=== PATIENT | male | born 1980 ===

== ENCOUNTER 2017-06-01 06:31 | Inpatient (IN) | payer OTHER ==
[2017-05-31 14:00] VITALS: BMI 25.0
[2017-06-01] MEDS ORDERED: Lactated Ringer's 1,000 ML IV ONE ×2 (07:15→10:50)
[2017-06-01] MEDS ORDERED: APROTININ/FIBRINOGEN(TISSEEL) ONE (07:42)
[2017-06-01] MEDS ORDERED: Absorbable Gelatin Sponge Size 12-7 ONE (07:42)
[2017-06-01] MEDS ORDERED: Bupivacaine HCl 0.25% PF (30 ml) Inj ONE (07:42)
[2017-06-01] MEDS ORDERED: Bacitracin Ointment 30 GM TUBE ONE (07:42)
[2017-06-01] MEDS ORDERED: Thrombin Topical 5,000 IU Spray Kit ONE (07:42)
[2017-06-01] MEDS ORDERED: Lidocaine 1% Inj (20ml) ONE (07:43)
--- NOTE | 2017-06-01 07:50 | CP.PCM.CON ---
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 Alcohol: Occasional Drugs: Denies Home Situation {Lives}: With Family Domestic Violence: Negative - MUSCULOSKELETAL/RHEUMATOLOGICAL Hx Musculoskeletal Disorders: Yes Hx Back Pain: Yes - SURGICAL HISTORY Hx Surgeries: No Other/Comment: EPIDURAL x1 - ANESTHESIA Hx Anesthesia: No Hx Anesthesia Reactions: No Hx Malignant Hyperthermia: No Has any member of the family had a problem w/ anesthesia?: No Meds Allergies/Adverse Reactions: Allergies Allergy/AdvReac Type Severity Reaction Status Date / Time No Known Allergies Allergy Verified 05/31/17 13:50 Physical Exam - Constitutional Appears: Well, Non-toxic, No Acute Distress - Head Exam Head Exam: ATRAUMATIC, NORMAL INSPECTION, NORMOCEPHALIC - Eye Exam Eye Exam: EOMI, Normal appearance, PERRL Pupil Exam: NORMAL ACCOMODATION - ENT Exam ENT Exam: Mucous Membranes Moist - Neck Exam Additional comments: restricted ROM,hx cervical spondylosis - Respiratory Exam Respiratory Exam: Clear to Auscultation Bilateral, NORMAL BREATHING PATTERN - Cardiovascular Exam Cardiovascular Exam: REGULAR RHYTHM, +S1, +S2 - GI/Abdominal Exam GI & Abdominal Exam: Normal Bowel Sounds - Rectal Exam Rectal Exam: Deferred - Extremities Exam Extremities exam: Positive for: normal inspection, pedal pulses present - Back Exam Back exam: paraspinal tenderness, vertebral tenderness - Neurological Exam Neurological exam: Alert, Oriented x3 Additional comments: NAILS x 4 antigravity with BLE weakness,decreased sensation to left L4-5 dermatome ,+ Bilateral ,SLR at 40 degree's,no pelvic paresthesias or babinski,depressed DTR's - Psychiatric Exam Psychiatric exam: Normal Affect, Normal Mood - Skin Skin Exam: Dry, Intact Results - Labs Result Diagrams: 06/03/17 04:50 06/03/17 04:50 Labs: Laboratory Results - last 24 hr 06/01/17 06:55 BBK History Checked No verified bt Assessment & Plan - Assessment and Plan (Free Text) Assessment: 37 yo male with Lumbar Spondylosis L4-5,L5-S1 with BLE radiculapathy worse LLE and Instability Plan: pt to have a proposed L4-5,L5-S1 Decompressive Laminectomy with Instrumented Fusion with Dr. Gallego,risks and benefits explained to pt,expressed understanding and wishes to proceed.
[2017-06-01] MEDS ORDERED: SENSORCAINE 0.5% W/EPINEPHRINE 50ML MDV IJ ONE (08:13)
[2017-06-01] MEDS ORDERED: Propofol 10 mg/ml Inj (20 ML) ONE (08:48)
[2017-06-01] MEDS ORDERED: Midazolam 2 MG/2 ML VIAL ONE (08:48)
[2017-06-01] MEDS ORDERED: Rocuronium 10 mg/ml (5 ml) ONE ×2 (08:49→10:09)
[2017-06-01] MEDS ORDERED: Dexamethasone 4 mg/1 ml ONE (09:17)
[2017-06-01] MEDS ORDERED: HEMOSTATIC MATRIX 10 ML DIS.NEEDLE TOP ONE (09:30)
[2017-06-01] MEDS ORDERED: Neostigmine Methylsulfate 2 MG/2 ML ML IV ONE (10:44)
[2017-06-01] MEDS ORDERED: Lactated Ringer's 1,000 ML IV SCH (11:22)
[2017-06-01] MEDS ORDERED: DiphenhydrAMINE 50 mg/ml Inj IVP PRN (11:24)
[2017-06-01] MEDS: HYDROmorphone 0.5 mg/0.5 ml ISec IVP PRN ×2 (11:45→12:30)
[2017-06-01] MEDS: Dexamethasone 4 MG in Sodium Chloride 0.9% 50 ML IVPB SCH ×2 (16:51→21:14)
[2017-06-01] MEDS: Sodium Chloride 0.9% 1,000 ML IV SCH (16:52)
[2017-06-01] MEDS: ceFAZolin 1 GM in Sodium Chloride 0.9% 100 ML IVPB SCH (16:52)
[2017-06-02] MEDS: Sodium Chloride 0.9% 1,000 ML IV SCH (01:30)
[2017-06-02] MEDS: ceFAZolin 1 GM in Sodium Chloride 0.9% 100 ML IVPB SCH ×3 (01:43→16:07)
--- NOTE | 2017-06-02 03:12 | OP ---
PROCEDURE DATE: 06/01/2017 PREOPERATIVE DIAGNOSES: Lumbar spondylosis and herniated disk. POSTOPERATIVE DIAGNOSES: Lumbar spondylosis and herniated disk. PROCEDURE: L4-S1 lumbar laminectomy and decompression; L4-S1 pedicle screw fixation and instrumentation using Amendia system; L4-S1 posterolateral fusion. Fluoroscopy has been used. Microscope has been used. SURGEON: Dr. Gallego. COMPREHENSIVE ADVISOR: SETH Chacon. Ingrid Cardenas is a physician engineering inspection assistant. Ingrid Cardenas helped to perform the surgery. She has stayed throughout the case. DESCRIPTION OF PROCEDURE: The patient was brought to the operating room, administered with general endotracheal anesthesia, placed in a prone position on the Darrin table. Care was taken to protect all pressure points. Back of the lumbar area thoroughly prepped and draped in sterile manner after marking was consistent for lumbar laminectomy. After prepping and draping the area, skin had been incised. Bleeding skins had been controlled with bipolar digital strategist. After using the Bovie digital strategist, paraspinal muscles had been detached, attachments of spinous process, lamina of L4, L5, S1. Deep retractors had been applied. Identification of the levels had been done with the help of fluoroscopy. With the help of fluoroscopy initially by using a K-wire, the determination of landmarks of the pedicles have been noted and drill had been used in order to enter the pedicles. Polyaxial titanium screws of Amendia system have been placed under fluoroscopy guided control. Titanium rods have been placed, cup nuts have been used in order to secure them. After that under microscopic examination, the spinous process of L4, L5, S1 have been removed. By using a high speed drill, the lamina had been drilled to actual thickness. By using a fine Kerrison punch, lamina, medial part of the facets and ligamentum flavum had been removed. Decompressing this area. This place has been examined, there were hard disk noted. No extruded fragment noted. After that, lateral aspect of the facet joint, transverse process had been decorticated. Demineralized bone placed in the area achieving a posterolateral fusion. Hemostasis was best achieved. Darrin drain was placed on the wound and brought out through a separate stab neck skin incision. Muscles and fascia were closed with 1 Vicryl, subcutaneous tissue with 3 Vicryl. Skin had been closed with intradermal 3 Vicryl stitches. The patient tolerated the procedure and after procedure, mobilized to recovery room in stable condition. Luis Gallego MD
[2017-06-02] MEDS: Dexamethasone 4 MG in Sodium Chloride 0.9% 50 ML IVPB SCH ×4 (04:21→22:14)
[2017-06-02 07:24] LABS: BASO # 0.1 K/uL (0.0-0.2); BASO % 0.3 % (0.0-2.0); EOS % 0.1 % (0.0-4.0); HEMATOCRIT 46.4 % (35.0-51.0); LYMPH # 1.8 K/uL (1.0-4.3); LYMPH % 10.2 % (20.0-40.0); MEAN CELL VOLUME 75.1 fl (80.0-94.0); MEAN CORPUSCULAR HEMOGLOBIN 25.4 pg (27.0-31.0); MEAN CORPUSCULAR HGB CONC 33.8 g/dL (33.0-37.0); MEAN PLATELET VOLUME 8.5 fl (7.2-11.7); MONO # 0.7 K/uL (0.0-0.8); MONO % 4.2 % (0.0-10.0); NEUT # 14.8 K/uL (1.8-7.0); NEUT % 85.2 % (50.0-75.0); RED CELL DISTRIBUTION WIDTH 14.3 % (11.5-14.5); WHITE BLOOD COUNT 17.4 K/uL (4.8-10.8)
[2017-06-02 07:51] LABS: BLOOD UREA NITROGEN 11 mg/dl (9-20); CALCIUM 9.6 mg/dL (8.4-10.2); CARBON DIOXIDE 24 mmol/L (22-30); CHLORIDE 97 mmol/L (98-107); GFR AFRICAN-AMERICAN > 60; GLUCOSE,RANDOM 147 mg/dL (75-110); POTASSIUM 4.1 MMOL/L (3.6-5.0); SODIUM 138 mmol/l (132-148)
--- NOTE | 2017-06-02 08:35 | RAD ---
PROCEDURE: Intraoperative Fluoroscopy. HISTORY: FINDINGS: Fluoroscopic assistance was provided. Approximately 77.8 seconds of fluoroscopy time utilized during this procedure. Radiation dose = 41.97 mGy. Please refer to the operative report for additional details.
--- NOTE | 2017-06-02 15:34 | CP.PCM.HP ---
<Sophia Dickerson - Last Filed: 06/02/17 15:31> History of Present Illness - History of Present Illness History of Present Illness: 37 yo presented with lower back pain x 1 year. 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 Pt is s/p Lumbar Laminectomy with Fusion L4-5 on POD #1 Present on Admission - Present on Admission Any Indicators Present on Admission: No History of DVT/PE: No History of Uncontrolled Diabetes: No Urinary Catheter: No Decubitus Ulcer Present: No Review of Systems - Review of Systems All systems: reviewed and no additional remarkable complaints except (as per HPI ) Past Patient History - Past Medical History & Family History Past Medical History?: Yes - Past Social History Smoking Status: Smoker Currrent Status Unknown - MUSCULOSKELETAL/RHEUMATOLOGICAL Hx Musculoskeletal Disorders: Yes Hx Back Pain: Yes - SURGICAL HISTORY Hx Surgeries: No Other/Comment: EPIDURAL x1 - ANESTHESIA Hx Anesthesia: No Hx Anesthesia Reactions: No Hx Malignant Hyperthermia: No Has any member of the family had a problem w/ anesthesia?: No Meds Allergies/Adverse Reactions: Allergies Allergy/AdvReac Type Severity Reaction Status Date / Time No Known Allergies Allergy Verified 05/31/17 13:50 Physical Exam - Constitutional Appears: No Acute Distress - ENT Exam ENT Exam: Mucous Membranes Moist - Respiratory Exam Respiratory Exam: Clear to Auscultation Bilateral, NORMAL BREATHING PATTERN - Cardiovascular Exam Cardiovascular Exam: REGULAR RHYTHM, +S1, +S2 - GI/Abdominal Exam GI & Abdominal Exam: Normal Bowel Sounds, Soft. absent: Distended, Firm, Guarding, Tenderness - Extremities Exam Extremities exam: Positive for: normal inspection. Negative for: calf tenderness, pedal edema - Neurological Exam Neurological exam: Alert, Oriented x3 - Skin Skin Exam: Dry, Intact, Normal Color Results - Vital Signs Recent Vital Signs: Last Vital Signs Temp 98.4 F 06/02/17 12:31 Pulse 68 06/02/17 12:31 Resp 18 06/02/17 12:31 BP 125/73 06/02/17 12:31 Pulse Ox 97 06/02/17 12:31 - Labs Result Diagrams: 06/02/17 07:00 06/02/17 07:00 Labs: Laboratory Results - last 24 hr 06/02/17 06/02/17 07:00 07:00 WBC 17.4 H RBC 6.18 H Hgb 15.7 Hct 46.4 MCV 75.1 L MCH 25.4 L MCHC 33.8 RDW 14.3 Plt Count 207 MPV 8.5 Neut % (Auto) 85.2 H Lymph % (Auto) 10.2 L [place] % (Auto) 4.2 Eos % (Auto) 0.1 Baso % (Auto) 0.3 Neut # 14.8 H Lymph # 1.8 [place] # 0.7 Eos # 0.0 Baso # 0.1 Sodium 138 Potassium 4.1 Chloride 97 L Carbon Dioxide 24 Anion Gap 21 H BUN 11 Creatinine 0.9 Est GFR ( Amer) > 60 Est GFR (Non-Af Amer) > 60 Random Glucose 147 H Calcium 9.6 Assessment & Plan (1) Status post lumbar laminectomy Status: Acute Comment: c/w pain control. c/w reg diet. c/w incentive spirometer. H/h: 15.7/ 46.4. PT eval and treatment. f/u Neuro surgery recommendations (2) DVT prophylaxis Status: Acute Comment: SCDs for now - Date & Time Date: 06/02/17 Time: 08:10 <Irving Hollis - Last Filed: 06/04/17 10:00> Results - Vital Signs Recent Vital Signs: Last Vital Signs Temp 98.1 F 06/04/17 07:52 Pulse 78 06/04/17 07:52 Resp 20 06/04/17 07:52 BP 128/75 06/04/17 07:52 Pulse Ox 100 06/04/17 07:52 - Labs Result Diagrams: 06/03/17 04:50 06/03/17 04:50 Assessment & Plan (1) Lumbar radiculopathy Status: Acute (2) Degenerative disc disease, lumbar Status: Acute - Assessment and Plan (Free Text) Plan: I was present during evaluation and discussed with DR Dickerson re plans of care and mgt Medically stable readmit to telemetry pain meds
--- NOTE | 2017-06-02 15:57 | CP.PCM.PN ---
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 and pt placed on PO pain meds Objective - Vital Signs/Intake and Output Vital Signs (last 24 hours): Temp Pulse Resp BP Pulse Ox 98.4 F 68 18 125/73 97 06/02/17 12:31 06/02/17 12:31 06/02/17 12:31 06/02/17 12:31 06/02/17 12:31 Intake and Output: 06/02/17 06/02/17 06:59 18:59 Intake Total 1440 Output Total 1110 Balance 330 - Medications Medications: Current Medications Cyclobenzaprine HCl (Flexeril) 10 mg PO TID PRN PRN Reason: Muscle spasm Diphenhydramine HCl (Benadryl) 25 mg IVP Q6 PRN PRN Reason: Itching / Pruritus Lactated Ringer's (Lactated Ringer's) 1,000 mls @ 100 mls/hr IV .Q10H [facility] Cefazolin Sodium 1 gm/ Sodium (Chloride) 100 mls @ 100 mls/hr IVPB Q8 [facility] Last Admin: 06/02/17 08:05 Dose: 100 mls/hr Dexamethasone 4 mg/ Sodium (Chloride) 51 mls @ 102 mls/hr IVPB Q6 [facility] Last Admin: 06/02/17 09:00 Dose: 102 mls/hr Ondansetron HCl (Zofran Inj) 4 mg IVP Q6 PRN PRN Reason: Nausea/Vomiting Oxycodone/Acetaminophen (Percocet 5/325 Mg Tab) 2 tab PO Q4 PRN PRN Reason: Pain, moderate (4-7) Stop: 06/05/17 14:48 - Labs Labs: 06/02/17 07:00 06/02/17 07:00 - Constitutional Appears: Well, Non-toxic, No Acute Distress - Head Exam Head Exam: ATRAUMATIC, NORMAL INSPECTION, NORMOCEPHALIC - Eye Exam Eye Exam: EOMI, Normal appearance, PERRL - ENT Exam ENT Exam: Mucous Membranes Moist - Neck Exam Neck Exam: Normal Inspection - Cardiovascular Exam Cardiovascular Exam: REGULAR RHYTHM, +S1, +S2 - GI/Abdominal Exam GI & Abdominal Exam: Soft - Extremities Exam Extremities Exam: Normal Inspection - Back Exam Additional comments: incision C/D/I,SHAW patent with serosanguinos drainage,abd binder patent - Neurological Exam Neurological Exam: Alert, Oriented x3 Additional comments: Nichols x 4 antigravity with good strength,sensation intact - Psychiatric Exam Psychiatric exam: Normal Affect, Normal Mood - Skin Skin Exam: Dry, Intact Assessment and Plan - Assessment and Plan (Free Text) Assessment: 37 yo male POD#1 L4-S1 Decompressive Laminectomy and Instrumented Fusion, neurologically stable Plan: cont to monitor,keep drain,pain control,d/w Dr. Gallego
[2017-06-02] MEDS: Oxycodone/Acetaminophen 5/325 mg Tab PO PRN (22:18)
[2017-06-03] MEDS: ceFAZolin 1 GM in Sodium Chloride 0.9% 100 ML IVPB SCH ×3 (01:31→17:01)
[2017-06-03] MEDS: Dexamethasone 4 MG in Sodium Chloride 0.9% 50 ML IVPB SCH ×4 (04:14→21:09)
[2017-06-03 05:56] LABS: HEMATOCRIT 42.3 % (35.0-51.0); MEAN CELL VOLUME 76.8 fl (80.0-94.0); MEAN CORPUSCULAR HGB CONC 32.5 g/dL (33.0-37.0); RED CELL DISTRIBUTION WIDTH 13.9 % (11.5-14.5); WHITE BLOOD COUNT 15.4 K/uL (4.8-10.8)
[2017-06-03 06:37] LABS: BLOOD UREA NITROGEN 14 mg/dl (9-20); CALCIUM 9.3 mg/dL (8.4-10.2); CARBON DIOXIDE 26 mmol/L (22-30); CHLORIDE 101 mmol/L (98-107); GFR AFRICAN-AMERICAN > 60; GLUCOSE,RANDOM 134 mg/dL (75-110); POTASSIUM 4.2 MMOL/L (3.6-5.0); SODIUM 139 mmol/l (132-148)
[2017-06-03] MEDS: POLYETHYLENE GLYCOL 3350 17 GM/Dose PACKET PO SCH (09:07)
[2017-06-03] MEDS: Oxycodone/Acetaminophen 5/325 mg Tab PO PRN ×2 (09:29→22:07)
--- NOTE | 2017-06-03 13:02 | CP.PCM.PN ---
<Padmini Alatorre - Last Filed: 06/03/17 13:03> Subjective - Date & Time of Evaluation Date of Evaluation: 06/03/17 Time of Evaluation: 07:30 - Subjective Subjective: Patient seen and examined with attending. Complaint of pain offered. Would like to go home. As per Dr. Gallego, not cleared for d/c given SHAW still draining significant amount. Plan d/w patient. Pain control. Stable for transfer to med/surg. Objective - Vital Signs/Intake and Output Vital Signs (last 24 hours): Temp Pulse Resp BP Pulse Ox 98 F 75 18 116/71 96 06/03/17 12:09 06/03/17 12:09 06/03/17 12:09 06/03/17 12:09 06/03/17 12:09 Intake and Output: 06/03/17 06/03/17 06:59 18:59 Intake Total 670 Output Total 555 Balance 115 - Medications Medications: Current Medications Cyclobenzaprine HCl (Flexeril) 10 mg PO TID PRN PRN Reason: Muscle spasm Diphenhydramine HCl (Benadryl) 25 mg IVP Q6 PRN PRN Reason: Itching / Pruritus Lactated Ringer's (Lactated Ringer's) 1,000 mls @ 100 mls/hr IV .Q10H [facility] Cefazolin Sodium 1 gm/ Sodium (Chloride) 100 mls @ 100 mls/hr IVPB Q8 [facility] Last Admin: 06/03/17 09:03 Dose: 100 mls/hr Dexamethasone 4 mg/ Sodium (Chloride) 51 mls @ 102 mls/hr IVPB Q6 [facility] Last Admin: 06/03/17 10:53 Dose: 102 mls/hr Ondansetron HCl (Zofran Inj) 4 mg IVP Q6 PRN PRN Reason: Nausea/Vomiting Oxycodone/Acetaminophen (Percocet 5/325 Mg Tab) 2 tab PO Q4 PRN PRN Reason: Pain, moderate (4-7) Stop: 06/05/17 14:48 Last Admin: 06/03/17 09:29 Dose: 2 tab Polyethylene Glycol (Miralax) 17 gm PO DAILY [facility] Last Admin: 06/03/17 09:07 Dose: 17 gm - Labs Labs: 06/03/17 04:50 06/03/17 04:50 - Constitutional Appears: Non-toxic, No Acute Distress - Eye Exam Eye Exam: EOMI, Normal appearance, PERRL - ENT Exam ENT Exam: Mucous Membranes Moist - Respiratory Exam Respiratory Exam: NORMAL BREATHING PATTERN - Cardiovascular Exam Cardiovascular Exam: REGULAR RHYTHM, +S1, +S2 - Neurological Exam Neurological Exam: Alert, Awake, Oriented x3 - Psychiatric Exam Psychiatric exam: Normal Affect, Normal Mood - Skin Skin Exam: Dry, Intact Additional comments: SHAW drain with serosanguinous fluid Assessment and Plan - Assessment and Plan (Free Text) Assessment: (1) Status post lumbar laminectomy - Pain control - reg diet - incentive spirometer - PT eval and treatment - Follow Neurosurgery recommendations (2) DVT PPX -lovenox -ambulation with PT/OT <Irving Hollsi - Last Filed: 06/04/17 10:02> Objective - Vital Signs/Intake and Output Vital Signs (last 24 hours): Temp Pulse Resp BP Pulse Ox 98.1 F 78 20 128/75 100 06/04/17 09:00 06/04/17 09:00 06/04/17 09:00 06/04/17 09:00 06/04/17 09:00 Intake and Output: 06/04/17 06/04/17 06:59 18:59 Intake Total 600 Output Total 25 25 Balance 575 -25 - Medications Medications: Current Medications Cyclobenzaprine HCl (Flexeril) 10 mg PO TID PRN PRN Reason: Muscle spasm Diphenhydramine HCl (Benadryl) 25 mg IVP Q6 PRN PRN Reason: Itching / Pruritus Lactated Ringer's (Lactated Ringer's) 1,000 mls @ 100 mls/hr IV .Q10H [facility] Cefazolin Sodium 1 gm/ Sodium (Chloride) 100 mls @ 100 mls/hr IVPB Q8 [facility] Last Admin: 06/04/17 08:44 Dose: 100 mls/hr Dexamethasone 4 mg/ Sodium (Chloride) 51 mls @ 102 mls/hr IVPB Q6 [facility] Last Admin: 06/04/17 04:43 Dose: 102 mls/hr Ondansetron HCl (Zofran Inj) 4 mg IVP Q6 PRN PRN Reason: Nausea/Vomiting Oxycodone/Acetaminophen (Percocet 5/325 Mg Tab) 2 tab PO Q4 PRN PRN Reason: Pain, moderate (4-7) Stop: 06/05/17 14:48 Last Admin: 06/03/17 22:07 Dose: 2 tab Pantoprazole Sodium (Protonix Ec Tab) 40 mg PO DAILY [facility] Last Admin: 06/04/17 08:45 Dose: 40 mg Polyethylene Glycol (Miralax) 17 gm PO DAILY [facility] Last Admin: 06/04/17 08:45 Dose: 17 gm - Labs Labs: 06/03/17 04:50 06/03/17 04:50 Assessment and Plan (1) Lumbar radiculopathy Status: Acute (2) Degenerative disc disease, lumbar Status: Acute - Assessment and Plan (Free Text) Plan: I was present during evaluation and discussed with Dr Landry echavarria plans of care and mgt.
[2017-06-03 15:57] VITALS: RESP 20
[2017-06-03] MEDS ORDERED: Alum-Mag Hydrox-Simethicone Susp (30 mL) PO ONE (20:39)
[2017-06-03] MEDS ORDERED: Pantoprazole 40 mg EC Tab PO STA (20:39)
[2017-06-04] MEDS: ceFAZolin 1 GM in Sodium Chloride 0.9% 100 ML IVPB SCH ×2 (00:12→08:44)
[2017-06-04] MEDS: Dexamethasone 4 MG in Sodium Chloride 0.9% 50 ML IVPB SCH ×2 (04:43→10:02)
[2017-06-04 07:53] VITALS: BP 128/75; PULSE 78; TEMP 98.1; O2SAT 100
[2017-06-04] MEDS: POLYETHYLENE GLYCOL 3350 17 GM/Dose PACKET PO SCH (08:45)
[2017-06-04] MEDS ORDERED: Pantoprazole 40 mg EC Tab PO SCH (09:00)
--- NOTE | 2017-06-04 10:07 | CP.PCM.DIS ---
Provider - Provider Date of Admission: 06/01/17 11:43 Attending physician: Irving Hollis MD Primary care physician: Luis Gallego MD Time Spent in preparation of Discharge (in minutes): 30 Diagnosis - Discharge Diagnosis (1) Lumbar radiculopathy Status: Acute (2) Degenerative disc disease, lumbar Status: Acute Hospital Course - Lab Results Lab Results: Most Recent Lab Values WBC 15.4 K/uL (4.8-10.8) H 06/03/17 04:50 RBC 5.50 Mil/uL (4.40-5.90) 06/03/17 04:50 Hgb 13.8 g/dL (12.0-18.0) 06/03/17 04:50 Hct 42.3 % (35.0-51.0) 06/03/17 04:50 MCV 76.8 fl (80.0-94.0) L 06/03/17 04:50 MCH 25.0 pg (27.0-31.0) L 06/03/17 04:50 MCHC 32.5 g/dL (33.0-37.0) L 06/03/17 04:50 RDW 13.9 % (11.5-14.5) 06/03/17 04:50 Plt Count 164 K/uL (130-400) 06/03/17 04:50 MPV 8.5 fl (7.2-11.7) 06/02/17 07:00 Neut % (Auto) 85.2 % (50.0-75.0) H 06/02/17 07:00 Lymph % (Auto) 10.2 % (20.0-40.0) L 06/02/17 07:00 [place] % (Auto) 4.2 % (0.0-10.0) 06/02/17 07:00 Eos % (Auto) 0.1 % (0.0-4.0) 06/02/17 07:00 Baso % (Auto) 0.3 % (0.0-2.0) 06/02/17 07:00 Neut # 14.8 K/uL (1.8-7.0) H 06/02/17 07:00 Lymph # 1.8 K/uL (1.0-4.3) 06/02/17 07:00 [place] # 0.7 K/uL (0.0-0.8) 06/02/17 07:00 Eos # 0.0 K/uL (0.0-0.7) 06/02/17 07:00 Baso # 0.1 K/uL (0.0-0.2) 06/02/17 07:00 Sodium 139 mmol/l (132-148) 06/03/17 04:50 Potassium 4.2 MMOL/L (3.6-5.0) 06/03/17 04:50 Chloride 101 mmol/L (98-107) 06/03/17 04:50 Carbon Dioxide 26 mmol/L (22-30) 06/03/17 04:50 Anion Gap 15 (10-20) 06/03/17 04:50 BUN 14 mg/dl (9-20) 06/03/17 04:50 Creatinine 0.8 mg/dL (0.8-1.5) 06/03/17 04:50 Est GFR ( Amer) > 60 06/03/17 04:50 Est GFR (Non-Af Amer) > 60 06/03/17 04:50 Random Glucose 134 mg/dL (75-110) H 06/03/17 04:50 Calcium 9.3 mg/dL (8.4-10.2) 06/03/17 04:50 Blood Type B POSITIVE 06/01/17 06:55 Blood Type Confirm B POSITIVE 06/01/17 08:05 Antibody Screen Negative 06/01/17 06:55 BBK History Checked No verified bt 06/01/17 06:55 - Hospital Course Hospital Course: This is a 37 y/o male with progressive worsening of back pain noted to have lumbar spondylosis and herniated disc L4L5 and L5S! had decompressive laminectomy. Post op period was unremarkable however he had significant drainage hence stayed for few days. He was sent home on the drain and was taught care and emptying procedure and was instructed to follow up with DR Gallego in 2 days. He was sent home in stable condition and Rx Percoet 10/ # 1 tab BID x 5 was given. Discharge Exam - Head Exam Head Exam: ATRAUMATIC, NORMAL INSPECTION, NORMOCEPHALIC - Eye Exam Eye Exam: Normal appearance - Respiratory Exam Respiratory Exam: NORMAL BREATHING PATTERN - Cardiovascular Exam Cardiovascular Exam: REGULAR RHYTHM - GI/Abdominal Exam GI & Abdominal Exam: Normal Bowel Sounds - Neurological Exam Neurological exam: CN II-XII Intact - Psychiatric Exam Psychiatric exam: Normal Mood Discharge Plan - Follow Up Plan Condition: GOOD Disposition: HOME/ ROUTINE Additional Instructions: advised follow up with Dr Gallego in 2 days. Rx given. Referrals: Luis Gallego MD [Primary Care Provider] -
== END 2017-06-04 11:30 | disposition home or self-care (01) | DRG 460 ==
LOC: H.OPSURG 06:31 → H.TEL 11:43
PROVIDERS: ADMIT Family Medicine; ATTEND Family Medicine
PROC: 01NB0ZZ Release Lumbar Nerve, Open Approach (ICD-10-PCS; 2017-06-01)
PROC: 0SG00J1 Fusion of Lumbar Vertebral Joint with Synthetic Substitute, Posterior Approach, Posterior Column, Open Approach (ICD-10-PCS; principal; 2017-06-01 10:00)
DX: M51.16 Intervertebral disc disorders with radiculopathy, lumbar region (principal); M47.26 Other spondylosis with radiculopathy, lumbar region

== ENCOUNTER 2017-08-16 07:03 | Inpatient (IN) | payer OTHER ==
[2017-08-11 13:52] VITALS: BMI 23.0
[2017-08-16] MEDS ORDERED: APROTININ/FIBRINOGEN(TISSEEL) ONE (08:00)
[2017-08-16] MEDS ORDERED: Thrombin Topical 5,000 IU Spray Kit ONE ×2 (08:00→08:31)
[2017-08-16] MEDS ORDERED: Lactated Ringer's 1,000 ML IV ONE ×2 (08:25→09:05)
[2017-08-16] MEDS ORDERED: Absorbable Gelatin Sponge Size 100 ONE (08:31)
[2017-08-16] MEDS ORDERED: ceFAZolin IV 1 gm in Dextrose 2 GM/100 ML BAG IVPB ONE (08:31)
[2017-08-16] MEDS ORDERED: ePHEDrine 50 mg/ml Inj ONE (08:32)
[2017-08-16] MEDS ORDERED: Midazolam 2 MG/2 ML VIAL ONE (08:32)
[2017-08-16] MEDS ORDERED: Propofol 10 mg/ml Inj (20 ML) ONE (08:32)
[2017-08-16] MEDS ORDERED: Rocuronium 10 mg/ml (5 ml) ONE (08:33)
[2017-08-16] MEDS ORDERED: Succinylcholine 200 mg/10 ml Inj IV ONE (08:33)
[2017-08-16] MEDS ORDERED: Neostigmine Methylsulfate 3mg/3ml Syringe IV ONE (09:40)
[2017-08-16] MEDS ORDERED: Sevoflurane - Inhalation Anesthetic Liq (250 ml) ONE (09:40)
[2017-08-16] MEDS ORDERED: Dexamethasone 4 mg/1 ml ONE (09:41)
[2017-08-16] MEDS ORDERED: HEMOSTATIC MATRIX 10 ML DIS.NEEDLE TOP ONE (09:55)
[2017-08-16] MEDS: HYDROmorphone 0.5 mg/0.5 ml ISec IVP PRN ×3 (11:05→14:00)
--- NOTE | 2017-08-16 11:56 | CP.PCM.CON ---
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 Gallego. Review of Systems - Review of Systems Systems not reviewed;Unavailable: Acuity of Condition - Musculoskeletal Musculoskeletal: Neck Pain, Radiating Pain into Limb, Tingling - Neurological Neurological: As Per HPI Past Patient History - Infectious Disease Hx of Infectious Diseases: None - Tetanus Immunizations Tetanus Immunization: Unknown - Past Medical History & Family History Past Medical History?: Yes - Past Social History Smoking Status: Current Some Days Smoker - CARDIAC Hx Cardiac Disorders: No - PULMONARY Hx Respiratory Disorders: No - NEUROLOGICAL Hx Neurological Disorder: No - HEENT Hx HEENT Problems: No - RENAL Hx Chronic Kidney Disease: No - ENDOCRINE/METABOLIC Hx Endocrine Disorders: No - HEMATOLOGICAL/ONCOLOGICAL Hx Blood Disorders: No - INTEGUMENTARY Hx Dermatological Problems: No - MUSCULOSKELETAL/RHEUMATOLOGICAL Hx Musculoskeletal Disorders: Yes Hx Back Pain: Yes - GASTROINTESTINAL Hx Gastrointestinal Disorders: Yes - GENITOURINARY/GYNECOLOGICAL Hx Genitourinary Disorders: No - PSYCHIATRIC Hx Psychophysiologic Disorder: No - SURGICAL HISTORY Hx Surgeries: Yes Other/Comment: EPIDURAL x1,,lumbar [id number] - ANESTHESIA Hx Anesthesia: Yes Hx Anesthesia Reactions: No Hx Malignant Hyperthermia: No Has any member of the family had a problem w/ anesthesia?: No Meds Allergies/Adverse Reactions: Allergies Allergy/AdvReac Type Severity Reaction Status Date / Time No Known Allergies Allergy Verified 08/16/17 08:36 - Medications Medications: Current Medications Hydromorphone HCl (Dilaudid) 0.5 mg IVP Q10M PRN PRN Reason: Pain, severe (8-10) Stop: 08/16/17 12:31 Last Admin: 08/16/17 11:23 Dose: 0.5 mg Ondansetron HCl (Zofran Inj) 4 mg IVP ONCE PRN PRN Reason: Nausea/Vomiting Stop: 08/16/17 12:31 Physical Exam - Constitutional Appears: Well, Non-toxic, No Acute Distress - Head Exam Head Exam: ATRAUMATIC, NORMAL INSPECTION, NORMOCEPHALIC - Eye Exam Eye Exam: EOMI, Normal appearance, PERRL Pupil Exam: NORMAL ACCOMODATION - ENT Exam ENT Exam: Mucous Membranes Moist - Neck Exam Neck exam: Positive for: Tenderness Additional comments: restricted ROM - Respiratory Exam Respiratory Exam: Clear to Auscultation Bilateral - Cardiovascular Exam Cardiovascular Exam: REGULAR RHYTHM, +S1, +S2 - GI/Abdominal Exam GI & Abdominal Exam: Normal Bowel Sounds, Soft - Rectal Exam Rectal Exam: Deferred - Extremities Exam Extremities exam: Positive for: pedal pulses present - Back Exam Back exam: NORMAL INSPECTION Additional comments: healed surgical scar - Neurological Exam Neurological exam: Alert, Oriented x3 Additional comments: NAILS x 4 antigravity with mild decreased strength,BUE decreased sensation,+2 DTR, neg hoffmans - Psychiatric Exam Psychiatric exam: Normal Affect, Normal Mood - Skin Skin Exam: Dry, Intact, Normal Color Results - Vital Signs Recent Vital Signs: Last Vital Signs Temp 98 F 08/16/17 07:58 Pulse 75 08/16/17 07:58 Resp 18 08/16/17 07:58 BP 125/83 08/16/17 07:58 Pulse Ox 98 08/16/17 07:58 - Labs Labs: Laboratory Results - last 24 hr 08/16/17 07:20 Blood Type B POSITIVE Antibody Screen Negative BBK History Checked Patient has bt Assessment & Plan - Assessment and Plan (Free Text) Assessment: 37 yo male with Cervical Spondylosis,radiulapathy and Myelopathy C5-6 Plan: here today for proposed ACDF C5-6,risks and benefits of surgery d/w pt, expressed understanding and wishes to proceed.
[2017-08-16] MEDS ORDERED: Benzocaine/Menthol (Cepacol) Lozenge PO PRN (12:11)
[2017-08-16] MEDS ORDERED: Lactated Ringer's 1,000 ML IV SCH (12:15)
--- NOTE | 2017-08-16 12:28 | RAD ---
PROCEDURE: Intraoperative Fluoroscopy. HISTORY: ACDF FINDINGS: Fluoroscopic assistance was provided for apparent ACDF. Please refer time was utilized with a cumulative dose of 1.87 mGy.
[2017-08-16] MEDS: Artificial Tears Opht Soln OU PRN ×2 (12:59→14:00)
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
[2017-08-16] MEDS ORDERED: Dexamethasone 4 MG in Sodium Chloride 0.9% 50 ML IVPB SCH (16:00)
[2017-08-16] MEDS: Oxycodone/Acetaminophen 5/325 mg Tab PO PRN ×2 (17:54→21:58)
[2017-08-16] MEDS: ceFAZolin 1 GM in Sodium Chloride 0.9% 100 ML IVPB SCH (18:07)
[2017-08-16] MEDS: Dexamethasone 4 mg/1 ml IV SCH (18:08)
--- NOTE | 2017-08-16 23:10 | OP ---
PROCEDURE DATE: 08/16/2017 PREOPERATIVE DIAGNOSIS: Cervical disk herniation, C5-C6. POSTOPERATIVE DIAGNOSIS: Cervical disk herniation, C5-C6. PROCEDURE: Partial vertebrectomy of C5 and C6; discectomy of C5-C6; interbody fusion of C5-C6 using PEEK and bone; plating and instrumentation C5 to C6 using an Amendia plate. Fluoroscopy has been used, microscope has been used. SURGEON: Luis Gallego MD FILTER MACHINE OPERATOR: Ingrid Cardenas, physician press operator assistant. Ingrid Cardenas has helped me perform the surgery from beginning to the end, and she has assisted me throughout the case. DESCRIPTION OF PROCEDURE: The patient was brought to the operating room, anesthetized with general endotracheal anesthesia, placed in a supine position, head was placed in a doughnut, care was taken to protect all the pressure points. Right side of the neck was thoroughly prepped and draped in the same sterile manner after marking the skin incision for a cervical vertebrectomy. After prepping and draping the area, skin has been incised. Bleeding skins had been controlled with bipolar grant officer. After using the Bovie grant officer, platysma has been cut. Dissection has been carried out between trachea and esophagus medially and sternomastoid carried out laterally. Prevertebral fascia had been cauterized and cut. Identification of levels has been done with the help of fluoroscopy. Longus colli has been detached, attachment of vertebral bodies of C5 and C6. Dyonics retractor has been applied. Rest of the operation had been carried out under microscopic illumination. PARTIAL VERTEBRECTOMY OF C5 and C6 AND DISCECTOMY OF C5-C6: By using a high-speed drill, the vertebral bodies of C5 and C6 have been drilled. Drilling was continued posteriorly. Half of the vertebral body including the cartilages and plates have been removed. Intermittently, discectomy has been performed and there is a disk herniation noted that has been removed. Posterior longitudinal ligament has been opened. Dura has been decompressed from side to side. INTERBODY FUSION OF C5-C6 USING A PEEK AND BONE: PEEK implant has been brought in and filled with demineralized bone. This was gently tapped into space creating a partial vertebrectomy of C5-C6. Position had been confirmed to be good. PLATING AND INSTRUMENTATION C5 TO C6 USING AN AMENDIA PLATE: An Amendia plate has been placed at vertebral bodies of C5 and C6. By using 12 mm screw, it has been secured under fluoroscopic guided control. After that, hemostasis was best achieved. Darrin drain was placed in the wound and brought out through a separate stab neck skin incision. Platysma closed with 3-0 Vicryl. Skin has been closed with intradermal 3-0 Vicryl stitches. Patient tolerated the procedure well. After procedure, mobilized to the recovery room in stabilized condition. Luis Gallego MD
[2017-08-17] MEDS: Dexamethasone 4 mg/1 ml IV SCH ×2 (00:57→06:11)
[2017-08-17 00:58] VITALS: RESP 20
[2017-08-17] MEDS: ceFAZolin 1 GM in Sodium Chloride 0.9% 100 ML IVPB SCH ×2 (00:59→09:27)
[2017-08-17 05:27] VITALS: TEMP 98.4
[2017-08-17] MEDS ORDERED: Enoxaparin 40 mg Syringe SC SCH (09:00)
[2017-08-17] MEDS: Oxycodone/Acetaminophen 5/325 mg Tab PO PRN (09:38)
--- NOTE | 2017-08-17 11:43 | CP.PCM.DIS ---
Provider - Provider Date of Admission: 08/16/17 12:37 Attending physician: Irving Hollis MD Primary care physician: Luis Gallego MD Consults: Dr. Gallego: Neurosurgery Time Spent in preparation of Discharge (in minutes): 35 Diagnosis - Discharge Diagnosis (1) Status post cervical discectomy Status: Acute (2) Cervical spondylitis Status: Chronic (3) Radiculopathy Status: Chronic (4) DVT prophylaxis Status: Resolved Hospital Course - Lab Results Lab Results: Most Recent Lab Values Blood Type B POSITIVE 08/16/17 07:20 Antibody Screen Negative 08/16/17 07:20 BBK History Checked Patient has bt 08/16/17 07:20 - Hospital Course Hospital Course: POD #1 37 year old male with hx of cervical spondylosis with radiculopathy s/p anterior cervical dicectomy with fusion. Patient has been doing well. Pain is well controlled. He is tolerating regular diet. SHAW drain output 10cc. Drain will be removed prior to d/c. He is to follow up with Dr. Gallego as outpatient. - Date & Time of H&P Date of H&P: 08/16/17 Time of H&P: 15:16 Discharge Exam - Head Exam Head Exam: ATRAUMATIC, NORMAL INSPECTION, NORMOCEPHALIC - Neck Exam Additional comments: dressing clean dry and intact on right anterior neck, drain with minimal serosanguinous fluid. - Respiratory Exam Respiratory Exam: Clear to PA & Lateral, NORMAL BREATHING PATTERN. absent: Decreased Breath Sounds, Rales, Rhonchi, Wheezes - Cardiovascular Exam Cardiovascular Exam: REGULAR RHYTHM, +S1, +S2 - GI/Abdominal Exam GI & Abdominal Exam: Normal Bowel Sounds, Soft. absent: Distended, Guarding, Tenderness - Neurological Exam Neurological exam: Alert, CN II-XII Intact, Normal Gait, Oriented x3 - Psychiatric Exam Psychiatric exam: Normal Affect, Normal Mood - Skin Skin Exam: Dry, Intact, Normal Color, Warm Discharge Plan - Follow Up Plan Condition: GOOD Disposition: HOME/ ROUTINE Referrals: Luis Gallego MD [Primary Care Provider] -
[2017-08-17 12:31] VITALS: BP 127/78; PULSE 87; O2SAT 97
[2017-08-17] MEDS ORDERED: ceFAZolin IV 1 gm in Dextrose 1 GM/50 ML BAG IVPB SCH (17:00)
== END 2017-08-17 13:22 | disposition home or self-care (01) | DRG 473 ==
LOC: H.OPSURG 07:03 → H.TEL 12:37
PROVIDERS: ADMIT Family Medicine; ATTEND Family Medicine
PROC: 0RG10A0 Fusion of Cervical Vertebral Joint with Interbody Fusion Device, Anterior Approach, Anterior Column, Open Approach (ICD-10-PCS; 2017-08-16)
PROC: 0RT30ZZ Resection of Cervical Vertebral Disc, Open Approach (ICD-10-PCS; principal; 2017-08-16 09:00)
DX: M47.22 Other spondylosis with radiculopathy, cervical region (principal); F17.200 Nicotine dependence, unspecified, uncomplicated; M47.12 Other spondylosis with myelopathy, cervical region; M50.222 Other cervical disc displacement at C5-C6 level; R20.2 Paresthesia of skin